=== PATIENT | female | born 1985 | race Caucasian/White ===

== ENCOUNTER → 2023-11-09 19:11 | Outpatient (REF) | payer OTHER, SELFPAY | LOC: WDC 19:11 | PROVIDERS: ATTENDING PHYSICIAN Nurse Practitioner Obstetrics & Gynecology | DX: Z12.31 Encounter for screening mammogram for malignant neoplasm of breast (principal) | CPT/HCPCS: 77063; 77067 ==

== ENCOUNTER → 2024-07-29 07:26 | Outpatient (REF) | payer OTHER, SELFPAY | LOC: RAD 07:26 | PROVIDERS: ATTENDING PHYSICIAN Internal Medicine Gastroenterology; FAMILY PHYSICIAN Nurse Practitioner Family | DX: R10.9 Unspecified abdominal pain (principal) | CPT/HCPCS: 76705 ==

== ENCOUNTER → 2024-09-07 10:45 | Outpatient (REF) | payer OTHER, SELFPAY | LOC: MRI 3T 10:45 | PROVIDERS: ATTENDING PHYSICIAN Nurse Practitioner Obstetrics & Gynecology; FAMILY PHYSICIAN Nurse Practitioner Family | DX: Z15.89 Genetic susceptibility to other disease (principal); Z15.01 Genetic susceptibility to malignant neoplasm of breast; Z15.09 Genetic susceptibility to other malignant neoplasm; Z91.89 Other specified personal risk factors, not elsewhere classified | CPT/HCPCS: 77049; A9585 ==